=== PATIENT | male | born 1985 | race Caucasian/White ===

== ENCOUNTER 2019-01-15 21:09 | Emergency (ER) | payer SELFPAY ==
[2019-01-15 21:23] VITALS: BP 146/79
--- NOTE | 2019-01-15 21:55 | UC ---
Ear Complaint HPI - HPI Summary HPI Summary: started w/ L ear pain last night that then radiated to L ear pain. denies fever , n/v, gorman,new hearing problems. did have dental work done 2 wks. ago. - History of Current Complaint Chief Complaint: UCEar Stated Complaint: EAR ACHE Time Seen by Provider: 01/15/19 21:40 Hx Obtained From: Patient Pain Intensity: 5 Pain Scale Used: 0-10 Numeric - Allergies/Home Medications Allergies/Adverse Reactions: Allergies Allergy/AdvReac Type Severity Reaction Status Date / Time environmental Allergy Eyes Uncoded 01/15/19 21:23 Itchy/Swollen/Red/Watery PMH/Surg Hx/FS Hx/Imm Hx - Additional Past Medical History Additional PMH: chronic hearing problems. Previously Healthy: Yes Respiratory History: Asthma - Surgical History Surgical History: Yes Surgery Procedure, Year, and Place: Knee Surgery x2. Jaw Surgery - Family History Known Family History: Positive: None - Social History Alcohol Use: None Substance Use Type: None Smoking Status (MU): Light Every Day Tobacco Smoker Type: Cigars, Smokeless Tobacco Amount Used/How Often: 2 cigs daily Length of Time of Smoking/Using Tobacco: 23+ YEARS Have You Smoked in the Last Year: Yes When Did the Patient Quit Smoking/Using Tobacco: on the pacth right now - Immunization History Most Recent Tetanus Shot: within past 4 yrs Review of Systems All Other Systems Reviewed And Are Negative: Yes Constitutional: Positive: Negative. Negative: Fever Skin: Negative: Rash ENT: Positive: Ear Ache. Negative: Sore Throat, Sinus Pain/Tenderness Respiratory: Positive: Negative Cardiovascular: Positive: Negative Physical Exam Triage Information Reviewed: Yes Appearance: Well-Appearing Vital Signs: Initial Vital Signs Temp 97.7 F 01/15/19 21:18 Pulse 76 01/15/19 21:18 Resp 16 01/15/19 21:18 BP 146/79 01/15/19 21:18 Pulse Ox 98 01/15/19 21:18 Vital Signs Reviewed: Yes Eyes: Positive: Conjunctiva Clear ENT: Positive: Pharynx normal, TMs normal, Uvula midline, Other - ear pain experienced when otoscope was inserted into L canal. no lesions or vesicles noted in the area. no redness, no tragus tenderness or mastoid tenderness. Dental Exam: Normal Ear Complaint Course/Dx - Course Course Of Treatment: Unclear etiology as there were no findings on exam, afebrile and given recent dental visit advised to follow up with them. - Differential Dx/Diagnosis Differential Diagnosis/HQI/PQRI: Cellulitis, Foreign Body, Mastoiditis, Otitis Externa, Otitis Media Provider Diagnosis: Ear pain Discharge - Sign-Out/Discharge Documenting (check all that apply): Patient Departure All imaging exams completed and their final reports reviewed: No Studies - Discharge Plan Condition: Good Disposition: HOME Patient Education Materials: Earache (ED) Referrals: No Primary Care Phys,NOPCP [Primary Care Provider] - [facility] [Outside] Additional Instructions: please follow up with a primary care provider to get further evaluated. at this time i cannot find a source of your ear pain. - Billing Disposition and Condition Condition: GOOD Disposition: Home
== END 2019-01-15 21:59 | disposition home or self-care (01) ==
LOC: UCEAST 21:09
DX: H92.02 Otalgia, left ear (principal); J45.909 Unspecified asthma, uncomplicated; F17.210 Nicotine dependence, cigarettes, uncomplicated; Z86.69 Personal history of other diseases of the nervous system and sense organs; Z91.09 Other allergy status, other than to drugs and biological substances
CPT/HCPCS: 99211; G0463

== ENCOUNTER 2019-02-10 14:32 | Emergency (ER) | payer OTHER ==
[2019-02-10 14:50] VITALS: BP 148/87
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
== END 2019-02-10 16:10 | disposition home or self-care (01) ==
LOC: UCEAST 14:32
DX: S20.211A Contusion of right front wall of thorax, initial encounter (principal); S90.32XA Contusion of left foot, initial encounter; S90.31XA Contusion of right foot, initial encounter; S70.12XA Contusion of left thigh, initial encounter; S70.11XA Contusion of right thigh, initial encounter; F17.210 Nicotine dependence, cigarettes, uncomplicated; J45.909 Unspecified asthma, uncomplicated; Z91.09 Other allergy status, other than to drugs and biological substances; V49.40XA Driver injured in collision with unspecified motor vehicles in traffic accident, initial encounter; Y92.9 Unspecified place or not applicable
CPT/HCPCS: 99212; G0463

== ENCOUNTER → 2019-03-13 22:39 | Emergency (ER) | payer SELFPAY ==
[2019-03-13 22:50] VITALS: BP 130/74
[2019-03-13 23:18] LABS: ABS Basophils 0.1 10^3/ul (0-0.2); ABS Eosinophils 0.3 10^3/ul (0-0.6); ABS Lymphocytes 2.4 10^3/ul (1.0-4.8); ABS Monocytes 0.6 10^3/ul (0-0.8); ABS Neutrophils 3.6 10^3/ul (1.5-7.7); ABS Nucleated RBC 0 10^3/ul; Eosinophil % 4.3 %; Hematocrit 35 % (36-46); Hemoglobin 12.3 g/dL (14.0-18.0); Lymphocyte % 34.2 %; Mean Corpuscular HGB Conc 35 g/dL (31-36); Mean Corpuscular Hemoglobin 32 pg (27-31); Mean Corpuscular Volume 91 fL (80-94); Mean Platelet Volume 6.9 fL (7.4-10.4); Nucleated Red Blood Cells % 0; Platelet Count 245 10^3/uL (150-450); Red Blood Count 3.88 10^6 /uL (4.18-5.48); Red Cell Distribution Width 13 % (10.5-15)
[2019-03-13 23:25] LABS: Activated Partial Thrombo Time 25.5 seconds (26.0-36.3); INR 1.26 (0.82-1.09)
[2019-03-13 23:39] LABS: ALT 32 U/L (7-52); AST 26 U/L (13-39); Albumin 4.7 g/dL (3.2-5.2); Albumin/Globulin Ratio 1.8 (1-3); Alkaline Phosphatase 44 U/L (34-104); Anion Gap 4 mmol/L (2-11); Blood Urea Nitrogen 19 mg/dL (6-24); CO2 Carbon Dioxide 33 mmol/L (22-32); Calcium 9.6 mg/dL (8.6-10.3); Chloride 101 mmol/L (101-111); EGFR African American 72.2 (>60); EGFR Non-African American 59.6 (>60); Globulin 2.6 g/dL (2-4); Glucose 94 mg/dL (70-100); Potassium 3.9 mmol/L (3.5-5.0); Sodium 138 mmol/L (135-145); Total Protein 7.3 g/dL (6.4-8.9)
== END | disposition left against medical advice (07) ==
LOC: ED 22:39
DX: R10.9 Unspecified abdominal pain (principal); Z87.442 Personal history of urinary calculi; Z53.21 Procedure and treatment not carried out due to patient leaving prior to being seen by health care provider
CPT/HCPCS: 36415; 74176; 80053; 83690; 85025; 85610; 85730

== ENCOUNTER 2019-03-15 10:58 | Emergency (ER) | payer SELFPAY ==
[2019-03-15 11:26] VITALS: BP 110/63
--- NOTE | 2019-03-15 11:49 | UC ---
Skin Complaint HPI - HPI Summary HPI Summary: patient states he was scratched by his cat a few days ago on the left arm, complaining of increased redness and pain from the elbow to the hand. he does not have any visible cat scratches, some abrasions noted, suspicious scabs that resemble track gurrola of iv drug use, but this is denied by patient. there is an overwhelming smell of marijuana in the room - History of Current Complaint Chief Complaint: UCSkin Time Seen by Provider: 03/15/19 11:42 Stated Complaint: CAT SCRATCH Hx Obtained From: Patient Onset/Duration: Sudden Onset, Lasting Days Skin Exposure Onset/Duration: Days Ago Timing: Constant Onset Severity: Moderate Current Severity: Moderate Pain Intensity: 5 Character: Redness Aggravating Factor(s): Nothing Alleviating Factor(s): Nothing Related History: Possible Reaction to: Animal - Allergy/Home Medications Allergies/Adverse Reactions: Allergies Allergy/AdvReac Type Severity Reaction Status Date / Time environmental Allergy Eyes Uncoded 03/15/19 11:26 Itchy/Swollen/Red/Watery Home Medications: Home Medications Acetaminophen [Tylenol] 325 mg PO 03/15/19 [History] PMH/Surg Hx/FS Hx/Imm Hx Previously Healthy: Yes - Surgical History Surgical History: Yes Surgery Procedure, Year, and Place: Knee Surgery x2. Jaw Surgery - Family History Known Family History: Negative: Hypertension - Social History Alcohol Use: None Substance Use Type: None Substance Use Comment - Amount & Last Used: past history - clean for 2.5 years Smoking Status (MU): Light Every Day Tobacco Smoker Type: Cigars, Smokeless Tobacco Amount Used/How Often: 2 cigs daily Length of Time of Smoking/Using Tobacco: 23+ YEARS Have You Smoked in the Last Year: Yes When Did the Patient Quit Smoking/Using Tobacco: on the pacth right now - Immunization History Most Recent Tetanus Shot: within past 4 yrs Review of Systems All Other Systems Reviewed And Are Negative: Yes Skin: Positive: Other - mulitple sabs on arm, redness Is Patient Immunocompromised?: No Physical Exam Triage Information Reviewed: Yes Appearance: Ill-Appearing, Pain Distress, Thin Vital Signs: Initial Vital Signs Temp 98 F 03/15/19 11:20 Pulse 73 03/15/19 11:20 Resp 16 03/15/19 11:20 BP 110/63 03/15/19 11:20 Pulse Ox 99 03/15/19 11:20 Vital Signs Reviewed: Yes Eye Exam: Normal ENT Exam: Normal Dental: Positive: Gross Decay/Caries @ Neck exam: Normal Respiratory Exam: Normal Cardiovascular Exam: Normal Abdominal Exam: Normal Bowel Sounds: Positive: Present Musculoskeletal Exam: Normal Neurological Exam: Normal Psychological Exam: Normal Skin: Positive: Other - multiple scabs on various spots on left forarm. small abraision on the upper aspect of forearm very superficial some mild erythema of hand noted. Course/Dx - Course Course Of Treatment: hx obtained, exam performed, meds reviewed, treated for possible cat scratcch/ cellulitis of the left forearm - Differential Diagnoses - Skin Complaint Differential Diagnoses: Cellulitis - Diagnoses Provider Diagnosis: Cellulitis of left arm Discharge - Sign-Out/Discharge Documenting (check all that apply): Patient Departure All imaging exams completed and their final reports reviewed: No Studies - Discharge Plan Condition: Stable Disposition: HOME Prescriptions: Amoxicillin/Clavulanate TAB* [Augmentin TAB 875*] 875 mg PO BID #20 tab Patient Education Materials: Cat Scratch Disease (ED) Referrals: No Primary Care Phys,NOPCP [Primary Care Provider] - Additional Instructions: 1. take the medication as prescribed. 2. Ibuprofen for pain. 3. If not improving after 4 doses of medication please follow up. - Billing Disposition and Condition Condition: STABLE Disposition: Home - Attestation Statements Provider Attestation: I was available for consult. This patient was seen by the MALA. The patient was not presented to , seen by or examined by fl -Maximus Espinal MD
== END 2019-03-15 12:10 | disposition home or self-care (01) ==
LOC: UCEAST 10:58
DX: S50.812A Abrasion of left forearm, initial encounter (principal); S40.812A Abrasion of left upper arm, initial encounter; L03.114 Cellulitis of left upper limb; W55.03XA Scratched by cat, initial encounter; Y92.9 Unspecified place or not applicable; K02.9 Dental caries, unspecified; F17.200 Nicotine dependence, unspecified, uncomplicated
CPT/HCPCS: 99212; G0463

== ENCOUNTER 2019-03-17 02:00 | Emergency (ER) | payer SELFPAY ==
[2019-03-17 02:05] VITALS: BP 139/95
[2019-03-17] MEDS ORDERED: LORazepam TAB(*) 1 MG PO ONE (02:17)
[2019-03-17] MEDS ORDERED: Ibuprofen TAB* 400 MG PO ONE (02:18)
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
== END 2019-03-17 02:36 | disposition home or self-care (01) ==
LOC: ED 02:00
DX: S39.012A Strain of muscle, fascia and tendon of lower back, initial encounter (principal); V47.5XXA Car driver injured in collision with fixed or stationary object in traffic accident, initial encounter; Y92.9 Unspecified place or not applicable; M41.9 Scoliosis, unspecified; F17.210 Nicotine dependence, cigarettes, uncomplicated
CPT/HCPCS: 99282; A9270-GY

== ENCOUNTER 2019-08-10 13:39 | Emergency (ER) | payer MEDICAID ==
[2019-08-10 14:10] VITALS: BP 111/67
--- NOTE | 2019-08-10 15:39 | UC ---
Throat Pain/Nasal Kelvin HPI - HPI Summary HPI Summary: 33-year-old male presents with complaints of nasal congestion, runny nose, sore throat, wheezing, and productive cough for the past 1-1/2 weeks. Associated with occasional chills. Denies fever, ear pain, dysphagia, chest pain, shortness of breath, abdominal pain, nausea, or vomiting. - History of Current Complaint Chief Complaint: UCGeneralIllness Stated Complaint: SORE THROAT Time Seen by Provider: 08/10/19 14:54 Hx Obtained From: Patient Pain Intensity: 0 - Allergies/Home Medications Allergies/Adverse Reactions: Allergies Allergy/AdvReac Type Severity Reaction Status Date / Time environmental Allergy Eyes Uncoded 08/10/19 14:10 Itchy/Swollen/Red/Watery Home Medications: Home Medications Buprenorp/Nalox 8-2 MG FILM [Suboxone] 1 mis SL TID 08/10/19 [History Confirmed 08/10/19] Omeprazole 20 mg PO DAILY WITH MEAL 08/10/19 [History Confirmed 08/10/19] PMH/Surg Hx/FS Hx/Imm Hx Previously Healthy: Yes GI/ History: Gastroesophageal Reflux - Surgical History Surgical History: None Surgery Procedure, Year, and Place: Knee Surgery x2. Jaw Surgery - Family History Known Family History: Positive: Non-Contributory - Social History Occupation: Unemployed Lives: With Family Alcohol Use: None Alcohol Amount: clean one year Substance Use Comment - Amount & Last Used: past history - clean for 2.5 years Smoking Status (MU): Light Every Day Tobacco Smoker Type: Cigars, Smokeless Tobacco Amount Used/How Often: 2 cigs daily Length of Time of Smoking/Using Tobacco: 23+ YEARS Have You Smoked in the Last Year: Yes When Did the Patient Quit Smoking/Using Tobacco: on the pacth right now - Immunization History Most Recent Tetanus Shot: within past 4 yrs Review of Systems All Other Systems Reviewed And Are Negative: Yes Constitutional: Positive: Chills. Negative: Fever Skin: Negative: Rash Eyes: Negative: Drainage, Eye Redness ENT: Positive: Sore Throat, Nasal Discharge, Sinus Congestion. Negative: Ear Ache, Sinus Pain/Tenderness Respiratory: Positive: Cough, Other - Wheezing. Negative: Shortness Of Breath Cardiovascular: Negative: Palpitations, Chest Pain Gastrointestinal: Negative: Abdominal Pain, Vomiting, Diarrhea, Nausea Genitourinary: Positive: Negative Musculoskeletal: Positive: Negative Neurological: Positive: Negative Is Patient Immunocompromised?: No Physical Exam - Summary Physical Exam Summary: GENERAL APPEARANCE: Well developed, well nourished, alert and cooperative, and appears to be in no acute distress. EYES: Conjunctiva clear. No drainage. EARS: External auditory canals and tympanic membranes clear, minimal scarring noted on right TM, hearing grossly intact. NOSE: Mild nasal congestion without nasal discharge. No sinus tenderness. THROAT: Mild pharyngeal erythema with post-nasal drainage. No tonsilar inflammation, swelling, exudate, or lesions. Uvula midline. NECK: Neck supple, non-tender. Mild anterior cervical lymphadenopathy. CARDIAC: Normal S1 and S2. No S3, S4 or murmurs. Rhythm is regular. There is no peripheral edema, cyanosis or pallor. Extremities are warm and well perfused. Capillary refill is less than 2 seconds. Peripheral pulses intact. LUNGS: Clear to auscultation without rales, rhonchi, wheezing or diminished breath sounds. Loose, nonproductive cough. ABDOMEN: Positive bowel sounds. Soft, nondistended, nontender. No guarding or rebound. No masses or hepatosplenomegally. MUSKULOSKELETAL: ROM intact to all extremities. No joint erythema or tenderness. Normal muscular development. Normal gait. SKIN: Skin normal color, texture and turgor with no lesions or eruptions. Triage Information Reviewed: Yes Vital Signs: Initial Vital Signs Temp 99.8 F 08/10/19 14:07 Pulse 62 08/10/19 14:07 Resp 18 08/10/19 14:07 BP 111/67 08/10/19 14:07 Pulse Ox 98 08/10/19 14:07 Vital Signs Reviewed: Yes Throat Pain/Nasal Course/Dx - Course Course Of Treatment: 33-year-old male presents with complaints of nasal congestion, runny nose, sore throat, wheezing, and productive cough for the past 1-1/2 weeks. Associated with occasional chills. Denies fever, ear pain, dysphagia, chest pain, shortness of breath, abdominal pain, nausea, or vomiting. Afebrile. Vital signs stable. Patient mild nasal congestion, mild pharyngeal erythema with postnasal drip, no tonsillar swelling or exudate, mild anterior cervical lymphadenopathy, clear bilateral breath sounds, or loose nonproductive cough, and otherwise unremarkable exam. Discussed with patient that symptoms are likely viral however considering the duration of symptoms cannot exclude the possibility of a secondary bacterial infection therefore patient would prefer to treat with course of antibiotics. Patient is to start azithromycin 2 tabs today followed by 1 tab daily for the next 4 days for an upper respiratory infection. We will also provide him with an albuterol inhaler as needed for any shortness of breath or wheezing, Tessalon Perles 1 capsule every 8 hours as needed for cough, and fluticasone nasal spray for his nasal congestion. He is to return here or follow up with primary care in 5 days if symptoms are not improving. Anticipatory guidance and warning symptoms were reviewed with the patient. Verbalizes understanding and agrees with plan of care. - Differential Dx/Diagnosis Differential Diagnosis/HQI/PQRI: Pharyngitis, Sinusitis, Tonsillitis, URI Provider Diagnosis: Upper respiratory infection Discharge ED - Sign-Out/Discharge Documenting (check all that apply): Patient Departure All imaging exams completed and their final reports reviewed: No Studies - Discharge Plan Condition: Stable Disposition: HOME Prescriptions: Albuterol HFA INHALER* [Ventolin HFA Inhaler*] 2 puff INH Q4H PRN #1 mdi PRN Reason: Sob/Wheezing Azithromyxin ANI (NF) [Z-Ani (Zithromax) 250 mg tabs #6] 2 tab PO .TODAY, THEN 1 DAILY #6 tab Benzonatate CAP* [Tessalon 100 MG CAP*] 100 mg PO TID PRN #21 cap PRN Reason: Cough Patient Education Materials: Upper Respiratory Infection (ED) Referrals: No Primary Care Phys,NOPCP [Primary Care Provider] - Additional Instructions: Your history and exam are consistent with an upper respiratory infection with cough. Start azithromycin 2 tabs today than 1 tab a day for the next 4 days. Use fluticasone (Flonase) nasal spray 2 sprays each nostril once daily to help with the nasal congestion. Use albuterol inhaler 2 puffs every 4-6 hours as needed for shortness of breath or wheezing. Take Tessalon Perles 1 capsule every 8 hours as needed for cough. Take over the counter acetaminophen (Tylenol) or ibuprofen (Advil, Motrin) according to directions as needed for pain or fever. Use salt water gargles several times a day if you have a sore throat. You may also use Chloraseptic spray or Cepacol lonzenges according to directions which contain a numbing medication and can provide some temporary relief from your sore throat. Return here or follow up with your primary care provider in 5 days if symptoms persist. Seek immediate medical attention in the emergency room if you have fever greater than 100.5 F despite taking acetaminophen or ibuprofen, have chest pain , difficulty breathing, are unable to swallow, or have any worsening of symptoms. - Billing Disposition and Condition Condition: STABLE Disposition: Home
== END 2019-08-10 15:55 | disposition home or self-care (01) ==
LOC: UCEAST 13:39
DX: J06.9 Acute upper respiratory infection, unspecified (principal); K21.9 Gastro-esophageal reflux disease without esophagitis
CPT/HCPCS: 87651; 99212; G0463

== ENCOUNTER 2019-10-25 08:55 | Emergency (ER) | payer MEDICAID, OTHER ==
--- NOTE | 2019-10-25 09:11 | UC ---
Cardiac HPI - HPI Summary HPI Summary: 33 yo smoker arrives with 2 hours of left chest pain, described as sharp, acute onset while driving. No associated diaphoresis or nausea. No previous hx of cardiac disease. He used crack cocaine last night and intravenously injected his last dose of Subutex this morning. States that he had a concussion 2 days ago when he smacked his head in his barn , no loss f consciousness. - History of Current Complaint Stated Complaint: CHEST PAIN Time Seen by Provider: 10/25/19 09:00 Hx Obtained From: Patient Onset/Duration: Sudden Onset, Lasting Hours - 2 Initial Severity: Moderate Current Severity: Severe Pain Intensity: 9 Chest Pain Location: Left Lateral Character: Sharp/Stabbing Aggravating Factor(s): Position, Deep Breaths Alleviating Factor(s): Position, Nothing Associated Signs & Symptoms: Positive: Chest Pain - Risk Factors Pulmonary Embolism Risk Factors: Smoking Cardiac Risk Factors: Smoking Atrial Fibrillation: Negative TAD Risk Factors: Negative AMI/ACS Risk Factors: Smoking, Cocaine - Allergy/Home Medications Allergies/Adverse Reactions: Allergies Allergy/AdvReac Type Severity Reaction Status Date / Time environmental Allergy Eyes Uncoded 08/10/19 14:10 Itchy/Swollen/Red/Watery PMH/Surg Hx/FS Hx/Imm Hx - Additional Past Medical History Additional PMH: hx of cocain abuse Previously Healthy: No - Surgical History Surgical History: None Surgery Procedure, Year, and Place: Knee Surgery x2. Jaw Surgery - Family History Known Family History: Negative: Cardiac Disease - states no FH of cardiac disease. - Social History Occupation: Unemployed Lives: With Family Alcohol Use: None Alcohol Amount: clean one year Substance Use Type: Cocaine Substance Use Comment - Amount & Last Used: past history - clean for 2.5 years Smoking Status (MU): Light Every Day Tobacco Smoker Type: Cigars, Smokeless Tobacco Amount Used/How Often: 2 cigs daily Length of Time of Smoking/Using Tobacco: 23+ YEARS Have You Smoked in the Last Year: Yes When Did the Patient Quit Smoking/Using Tobacco: on the pacth right now - Immunization History Most Recent Tetanus Shot: within past 4 yrs Review of Systems All Other Systems Reviewed And Are Negative: Yes Constitutional: Positive: Fatigue Skin: Positive: Other - track gurrola forearms. Eyes: Positive: Negative ENT: Positive: Negative Respiratory: Positive: Shortness Of Breath Cardiovascular: Positive: Chest Pain Gastrointestinal: Negative: Abdominal Pain, Vomiting, Nausea Genitourinary: Positive: Negative Motor: Positive: Negative Neurovascular: Positive: Negative Musculoskeletal: Positive: Negative Neurological: Positive: Negative Psychological: Positive: Negative Physical Exam Triage Information Reviewed: Yes Appearance: Ill-Appearing, Pain Distress - moderate, Thin Vital Signs Reviewed: Yes ENT: Positive: Pharynx normal Neck: Positive: Supple, Nontender, No Lymphadenopathy Respiratory: Positive: Lungs clear, Normal breath sounds Cardiovascular: Positive: RRR, No Murmur, Pulses Normal Abdomen Description: Positive: Nontender, No Organomegaly, Soft Musculoskeletal Exam: Normal Neurological: Positive: Alert, Muscle Tone Normal Psychological Exam: Other - anxious Skin Exam: Other - Track gurrola both forearms. Skin: Negative: Rashes Diagnostics - EKG Cardiac Rate: NL Cardiac Rhythm: Sinus: Normal Ectopy: None ST Segment: Non-Specific Re-Evaluation - Re-Evaluation First Eval Re-Evaluation Time: 09:25 Change: Unchanged Comment: No response to one dose of nitroglycerine. Blood pressure lower at 119. - Assessment/Plan Course Of Treatment: Transferred to ER for evaluation - Differential Diagnoses - Chest Pain Differential Diagnosis/HQI/PQRI: Acute MN, ACS, Chest Wall, Pulmonary Embolism - Clinical Impression Provider Diagnosis: Chest pain - Physician Notifications Discussed Patient Care With: Jose Corona Time Discussed With Above Provider: 09:20 Instructed by Provider To: MD Will See In ED Discharge ED - Sign-Out/Discharge Documenting (check all that apply): Patient Departure All imaging exams completed and their final reports reviewed: No Studies - Discharge Plan Condition: Stable Disposition: TRANS HIGHER LVL OF CARE FAC Referrals: No Primary Care Phys,NOPCP [Primary Care Provider] - - Billing Disposition and Condition Condition: STABLE Disposition: Trans Higher Lvl of Care Fac
[2019-10-25] MEDS ORDERED: Aspirin 81 mg CHEW TAB* 81 MG TAB.CHEW PO ONE (09:12)
[2019-10-25] MEDS ORDERED: Nitroglycerin TAB 0.4 MG* 0.4 MG TAB SL ONE (09:13)
[2019-10-25 09:42] VITALS: BP 119/63
== END 2019-10-25 09:35 | disposition short-term general hospital (02) ==
LOC: UCEAST 08:55
DX: R07.89 Other chest pain (principal); R53.83 Other fatigue; F17.290 Nicotine dependence, other tobacco product, uncomplicated; Z91.09 Other allergy status, other than to drugs and biological substances
CPT/HCPCS: 93005; 99213; A9270-GY; G0463

== ENCOUNTER 2019-10-25 09:58 | Emergency (ER) | payer OTHER ==
[2019-10-25] MEDS ORDERED: LORazepam INJ* 2 MG/ML 1 ML VIAL IV PUSH ONE ×2 (09:59→10:15)
[2019-10-25] MEDS ORDERED: Lorazepam PYXIS KEY PRN ×2 (09:59→10:15)
[2019-10-25] MEDS ORDERED: NS 0.9% 1000 ML** 1,000 ML IV ONE (10:00)
[2019-10-25] MEDS ORDERED: Lorazepam PYXIS KEY ONE ×2 (10:01→10:18)
--- NOTE | 2019-10-25 10:07 | ED ---
HPI Chest Pain - HPI Summary HPI Summary: The patient is a 33 y/o M arriving by ambulance to [facility] from [facility] with a chief complaint of sudden onset left anterior CP onset this morning at 0700. The pain is described as a sharp, stabbing, feeling like my chest is about to explode pain rated 10/10 in severity that has not been relieved or changed with ASA or 1 NTG at [facility], or with 2 additional NTG en route. The pain radiates into the left lateral area. Patient denies any diaphoresis, nausea, or SOB. EKG at [facility] showed ST changes c/w early repol without indication for acute ID, per EMS report. He states that he smoked crack cocaine last night, but he didnt have any CP then. He injected Suboxone this morning which he is prescribed for previous heroin abuse with last use 8 months ago. No past medical or family history of cardiac disease. He also notes that he fell a few days ago where he hit his head, but he denies any LOC with the event. Current smoker, no EtOH. Medications reviewed. Allergies noted. Blood pressure in ambulance: 125/75 mmHg Blood pressure upon arrival: 112/56 mmHg (left), 125/80 mmHg (right) Repeat blood pressures: 103/53 mmHg (left), 120/72 mmHg (right) - History of Current Complaint Hx Obtained From: Patient, EMS Onset/Duration: Started Hours Ago, Still Present Time of Onset: 07:00 Timing: Constant, Lasting Hours Initial Severity: Severe Current Severity: Severe Pain Intensity: 10 Pain Scale Used: 0-10 Numeric Chest Pain Location: Left Anterior Chest Pain Radiates: Yes Chest Pain Radiates To:: Other - left lateral chest Character: Sharp/Stabbing Aggravating Factor(s): Nothing Alleviating Factor(s): Nothing - ASA and NTG to no relief Associated Signs and Symptoms: Positive: Chest Pain. Negative: Shortness of Breath, Diaphoresis, Nausea - Allergy/Home Medications Allergies/Adverse Reactions: Allergies Allergy/AdvReac Type Severity Reaction Status Date / Time environmental Allergy Eyes Uncoded 08/10/19 14:10 Itchy/Swollen/Red/Watery PMH/Surg Hx/FS Hx/Imm Hx Endocrine/Hematology History: Denies: Hx Diabetes, Hx Thyroid Disease Cardiovascular History: Denies: Hx Hypertension Respiratory History: Denies: Hx Asthma, Hx Chronic Obstructive Pulmonary Disease (COPD) GI History: Reports: Hx Ulcer - Surgical History Surgical History: Yes Surgery Procedure, Year, and Place: Knee Surgery x2. Jaw Surgery - Immunization History Date of Tetanus Vaccine: 2-3 yrs ago Date of Influenza Vaccine: none Infectious Disease History: Denies: Hx Clostridium Difficile, Hx Hepatitis, Hx Human Immunodeficiency Virus (HIV), Hx of Known/Suspected MRSA, Hx Shingles, Hx Tuberculosis, Hx Known/ Suspected VRE, Hx Known/Suspected VRSA, History Other Infectious Disease - Family History Known Family History: Negative: Cardiac Disease - states no FH of cardiac disease. - Social History Alcohol Use: None Alcohol Amount: clean one year Substance Use Type: Reports: Cocaine, Heroin Substance Use Comment - Amount & Last Used: last used crack cocaine on 10/24/19 Smoking Status (MU): Light Every Day Tobacco Smoker Type: Cigars, Smokeless Tobacco Amount Used/How Often: 2 cigs daily Length of Time of Smoking/Using Tobacco: 23+ YEARS Have You Smoked in the Last Year: Yes Review of Systems Negative: Skin Diaphoresis Positive: Chest Pain - left anterior radiating into left lateral, sharp and stabbing Negative: Shortness Of Breath Negative: Nausea All Other Systems Reviewed And Are Negative: Yes Physical Exam - Summary Physical Exam Summary: Constitutional: Well-developed. (+) Moderately distressed Skin: Warm, Dry HENT: Normocephalic; Atraumatic Eyes: Conjunctiva normal Neck: Musculoskeletal ROM normal neck. (-) JVD, (-) Stridor, (-) Nuchal rigidity Cardio: Rhythm regular, rate normal, Heart sounds normal; Intact distal pulses; Radial pulses are 2+ and symmetric. (-) Murmur Pulmonary/Chest wall: Effort normal. Tenderness over the left anterior chest. (- ) Respiratory distress, (-) Wheezes, (-) Rales Abd: Soft, (-) tenderness, (-) Distension, (-) Guarding, (-) Rebound Musculoskeletal: (-) Edema, tenderness to L chest wall. Lymph: (-) Cervical adenopathy Neuro: Alert, Oriented x3 Psych: Anxious, Mood and affect otherwise Normal Triage Information Reviewed: Yes Vital Signs Reviewed: Yes Procedures - Sedation Patient Received Moderate/Deep Sedation with Procedure: No Diagnostics - Laboratory Result Diagrams: 10/25/19 10:31 10/25/19 10:31 Lab Statement: Any lab studies that have been ordered have been reviewed, and results considered in the medical decision making process. - Radiology CXR Radiology Interpretation Completed By: Radiologist Summary of Radiographic Findings: Impression: No focal airspace opacification. ED physician has reviewed this report. - CT Chest/Abdomen/Pelvis CTA CT Interpretation Completed By: Radiologist Summary of CT Findings: Impression: Unremarkable CTA of the chest, abdomen and pelvis. Specifically, no aortic dissection is identified. ED physician has reviewed this report. - EKG 0959 Cardiac Rate: NL - 87 BPM EKG Rhythm: Sinus Rhythm Summary of EKG Findings: An EKG at 0959 reveals normal sinus rhythm at 87 BPM. Mild peaked T waves in lead II, V2, and V3. No STEMI. ED physician has reviewed and interpreted this EKG. 1005 Cardiac Rate: NL - 78 BPM EKG Rhythm: Sinus Rhythm EKG Comparison: No Significant Change - Similar to previous at 0959 today. Summary of EKG Findings: An EKG at 1005 reveals normal sinus rhythm at 87 BPM. Continued peaked T waves in lead II, V2, V3, and V4. No STEMI. ED physician has reviewed and interpreted this EKG. 1337 Cardiac Rate: Bradycardia - 55 BPM EKG Rhythm: Sinus Bradycardia Summary of EKG Findings: An EKG at 1337 reveals sinus bradycardia at 55 BPM, nml axis, nml intervals. No STEMI. No acute changes. ED physician has reviewed and interpreted this EKG. Re-Evaluation - Re-Evaluation First Eval Re-Evaluation Time: 14:09 Change: Improved Comment: He is still experiencing pain in the chest wall but is improved since onset. Second Eval Re-Evaluation Time: 14:34 Change: Improved Comment: Patient is eating. Has ambulated in ED. trop neg x2 Chest Pain Course/Dx - Course Course Of Treatment: 33 y/o male w hx cocaine and heroin use p/w CP. - PE w uncomfortable male, equal pulses. Mild discrepency in BP between arms. EKG here w mild peaked t waves otherwise normal. CXR w/o abnormality. CT dissection w/o e /o dissection. Trop neg x2, EKG unchanged x3. VSS. Given aspirin and nitro which did not help. Likely pain 2/2 cocaine use, given ativan 2 mg w good relief. Patient tolerating PO and ambulating in ED. States only pain when movingg L chest wall otherwise feels much improved. Heart score 2, low risk. - Diagnoses Provider Diagnoses: Chest pain, Cocaine use Discharge ED - Sign-Out/Discharge Documenting (check all that apply): Patient Departure - Patient will be discharged home. - Discharge Plan Condition: Stable Disposition: HOME Patient Education Materials: Chest Pain (ED), Cocaine Abuse (ED) Referrals: [facility] [Outside] - 3 Days Additional Instructions: You were seen in the emergency department for chest pain. Please do not use cocaine. Your EKG (heart tracing), labs and chest x-ray did not show any cause for pain. Important that you follow up with you primary care doctor in the next 1-2 days to help schedule an outpatient stress test. Please return to the emergency department for continued chest pain, trouble breathing, passing out, or if you're concerned. - Billing Disposition and Condition Condition: STABLE Disposition: Home - Attestation Statements Document Initiated by José Luis: Yes Documenting Scribe: Diane Escalante Provider For Whom José Luis is Documenting (Include Credential): Dr. Sally Seaman MD Scribe Attestation: I, Diane Escalante, scribed for Dr. Sally Seaman MD on 10/26/19 at 1616. Scribe Documentation Reviewed: Yes Provider Attestation: The documentation as recorded by the Diane storey accurately reflects the service I personally performed and the decisions made by me, Dr. Sally Seaman MD Status of Scribe Document: Viewed
[2019-10-25 10:40] LABS: ABS Basophils 0.1 10^3/ul (0-0.2); ABS Eosinophils 0.5 10^3/ul (0-0.6); ABS Lymphocytes 1.8 10^3/ul (1.0-4.8); ABS Monocytes 0.4 10^3/ul (0-0.8); ABS Neutrophils 2.1 10^3/ul (1.5-7.7); Eosinophil % 9.7 %; Hematocrit 32 % (42-52); Hemoglobin 11.3 g/dL (14.0-18.0); Mean Corpuscular HGB Conc 36 g/dL (31-36); Mean Corpuscular Hemoglobin 32 pg (27-31); Mean Corpuscular Volume 89 fL (80-94); Mean Platelet Volume 6.6 fL (7.4-10.4); Nucleated Red Blood Cells % 0.1; Platelet Count 184 10^3/uL (150-450); Red Blood Count 3.59 10^6 /uL (4.18-5.48); Red Cell Distribution Width 14 % (10-15); White Blood Count 4.9 10^3/uL (3.5-10.8)
[2019-10-25 10:54] LABS: Albumin 3.9 g/dL (3.2-5.2); Albumin/Globulin Ratio 1.6 (1-3); BUN/Creatinine Ratio 19.4 (8-20); Calcium 8.9 mg/dL (8.6-10.3); EGFR African American 99.4 (>60); EGFR Non-African American 82.2 (>60); Globulin 2.5 g/dL (2-4); Potassium 4.4 mmol/L (3.5-5.0); Total Bilirubin 0.4 mg/dL (0.2-1.0); Total Protein 6.4 g/dL (6.4-8.9)
[2019-10-25] MEDS ORDERED: Iohexol 350* (CONTRAST) 500 ML MDV IV ONE (11:02)
[2019-10-25 15:31] VITALS: BP 117/72
== END 2019-10-25 15:31 | disposition home or self-care (01) ==
LOC: ED 09:58
DX: R07.89 Other chest pain (principal); F14.90 Cocaine use, unspecified, uncomplicated; R00.1 Bradycardia, unspecified; F17.290 Nicotine dependence, other tobacco product, uncomplicated
CPT/HCPCS: 36415; 71045; 71275; 74174; 80053; 84484; 85025; 93005; 96361; 96374; 99284; J2060; Q9967

== ENCOUNTER 2019-10-30 09:07 | Emergency (ER) | payer OTHER ==
[2019-10-30 09:29] VITALS: BP 115/78
--- NOTE | 2019-10-30 10:04 | UC ---
Laceration HPI - HPI Summary HPI Summary: 33 yo who lacerated mid left eyebrow when he walked into the open door of his vehicle today after he turned quickly. No loss of consciousness or changes in vision associated with this. Tetanus is up to date. - History Of Current Complaint Chief Complaint: UCLaceration Stated Complaint: LAC OVER LT EYE Time Seen by Provider: 10/30/19 09:56 Hx Obtained From: Patient Laceration Location: Eye - eyebrow Mechanism Of Injury: Blunt Trauma Severity: Mild Pain Intensity: 3 Aggravating Factors: Nothing - Allergies/Home Medications Allergies/Adverse Reactions: Allergies Allergy/AdvReac Type Severity Reaction Status Date / Time environmental Allergy Eyes Uncoded 10/30/19 09:18 Itchy/Swollen/Red/Watery PMH/Surg Hx/FS Hx/Imm Hx - Additional Past Medical History Additional PMH: hx of cocaine and drug abuse. - Surgical History Surgical History: Yes Surgery Procedure, Year, and Place: Knee Surgery x2. Jaw Surgery - Family History Known Family History: Positive: Non-Contributory Negative: Cardiac Disease - states no FH of cardiac disease. - Social History Occupation: Unemployed Lives: With Family Alcohol Use: None Alcohol Amount: clean one year Substance Use Type: Cocaine Substance Use Comment - Amount & Last Used: last used crack cocaine on 10/24/19 Smoking Status (MU): Light Every Day Tobacco Smoker Type: Cigars, Smokeless Tobacco Amount Used/How Often: 2 cigs daily Length of Time of Smoking/Using Tobacco: 23+ YEARS Have You Smoked in the Last Year: Yes When Did the Patient Quit Smoking/Using Tobacco: on the pacth right now Household Exposure Type: Cigars - Immunization History Most Recent Tetanus Shot: 2016 Review of Systems All Other Systems Reviewed And Are Negative: Yes Constitutional: Positive: Negative Skin: Positive: Negative Eyes: Negative: Blurred Vision, Eye Redness ENT: Positive: Negative Respiratory: Positive: Negative Cardiovascular: Positive: Chest Pain - note recent evaluation of chest pain with CTA of the chest being negative, normal chest xray. He has been injecting suboxone., Other - episodes of pre-syncopy with position changes. Gastrointestinal: Positive: Negative Genitourinary: Positive: Negative Motor: Positive: Negative Neurovascular: Positive: Negative Musculoskeletal: Positive: Negative Neurological: Positive: Negative Psychological: Positive: Negative Is Patient Immunocompromised?: No Physical Exam Triage Information Reviewed: Yes Appearance: Thin - looks chronically unwell Vital Signs: Initial Vital Signs Temp 98.8 F 10/30/19 09:18 Pulse 71 10/30/19 09:18 Resp 18 10/30/19 09:18 BP 115/78 10/30/19 09:18 Pulse Ox 100 10/30/19 09:18 Eye Exam: Normal ENT: Positive: Pharynx normal, TMs normal Neck exam: Normal Respiratory Exam: Normal Cardiovascular Exam: Normal Musculoskeletal Exam: Normal Neurological Exam: Normal Psychological Exam: Normal Skin Exam: Normal Laceration Repair - Laceration Repair 1 Description: Linear Laceration Size After Repair: Length (cm) - 1.2, Width (mm) - 0 Modified For Repair: No Irrigation With Pressure Irrigation Device: Yes Closure Material: Skin Adhesive - Repaired with adhesive with good approximation of margins Laceration Course/Dx - Course/Dx Course Of Treatment: care of wound discussed. - Differential Dx - Laceration/Wound Differental Diagnoses: Laceration - Diagnosis Provider Diagnosis: Laceration of left eyebrow without complication Discharge ED - Sign-Out/Discharge Documenting (check all that apply): Patient Departure All imaging exams completed and their final reports reviewed: No Studies - Discharge Plan Condition: Stable Disposition: HOME Patient Education Materials: Skin Adhesive Care (ED), Facial Laceration (ED) Referrals: No Primary Care Phys,NOPCP [Primary Care Provider] - Additional Instructions: The laceration of your eyebrow should heal well with adhesive (See care instructions). Please ensure that you keep your follow up evaluation with [facility] to review medications and your recent symptoms. - Billing Disposition and Condition Condition: STABLE Disposition: Home
== END 2019-10-30 10:34 | disposition home or self-care (01) ==
LOC: UCCORT 09:07
DX: S01.112A Laceration without foreign body of left eyelid and periocular area, initial encounter (principal); F17.290 Nicotine dependence, other tobacco product, uncomplicated; Z91.09 Other allergy status, other than to drugs and biological substances; W22.8XXA Striking against or struck by other objects, initial encounter; Y92.9 Unspecified place or not applicable
CPT/HCPCS: 12001; 99211; G0463

== ENCOUNTER 2020-01-18 10:37 | Emergency (ER) | payer OTHER ==
[2020-01-18] MEDS ORDERED: Meclizine TAB* 12.5 MG PO ONE (10:59)
[2020-01-18] MEDS ORDERED: Aspirin 81 mg CHEW TAB* 81 MG TAB.CHEW PO ONE (10:59)
[2020-01-18 11:00] VITALS: BP 138/89
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
== END 2020-01-18 11:35 | disposition home health service (06) ==
LOC: UCEAST 10:37
DX: R42 Dizziness and giddiness (principal); R51 Headache; I21.9 Acute myocardial infarction, unspecified; R94.31 Abnormal electrocardiogram [ECG] [EKG]; S09.90XA Unspecified injury of head, initial encounter; F19.11 Other psychoactive substance abuse, in remission; F17.290 Nicotine dependence, other tobacco product, uncomplicated; Z91.09 Other allergy status, other than to drugs and biological substances; W22.8XXA Striking against or struck by other objects, initial encounter; Y92.9 Unspecified place or not applicable
CPT/HCPCS: 99212; A9270-GY; G0463

== ENCOUNTER 2020-01-25 09:58 | Emergency (ER) | payer OTHER ==
[2020-01-25 12:48] VITALS: BP 121/73
--- NOTE | 2020-01-25 13:42 | UC ---
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 Has B/L excoriated skin skins on B/L forearms but c/o severe right testicular tenderness, denies recent sexual activity, last STD testing was in November and was Neg per pt. Pt states he masturbates 2-3times per day and may have "irritated it" denies drainage from penis or dysuria - History of Current Complaint Chief Complaint: UCSkin Stated Complaint: PERSONAL Time Seen by Provider: 01/25/20 10:48 Hx Obtained From: Patient Onset/Duration: Sudden Onset Timing: Constant Severity Initially: Severe Severity Currently: Severe Pain Intensity: 8 Pain Scale Used: 0-10 Numeric Location: Other - around [place] of penis Character: Sharp Alleviating Factor(s): Movement Associated Signs And Symptoms: Positive: Negative - Risk Factors Testicular Torsion: Negative - Allergies/Home Medications Allergies/Adverse Reactions: Allergies Allergy/AdvReac Type Severity Reaction Status Date / Time environmental Allergy Eyes Uncoded 01/25/20 10:09 Itchy/Swollen/Red/Watery Home Medications: Home Medications Meclizine HCl [Motion Sickness Relief] 25 mg PO Q6HR PRN #20 tablet 01/18/20 [ Rx Confirmed 01/25/20] Omeprazole 20 mg PO DAILY 01/18/20 [History Confirmed 01/25/20] Cephalexin CAP* [Keflex CAP*] 500 mg PO TID 10 Days #30 cap 01/25/20 [Rx] Naproxen [Naproxen 500 mg tab] 500 mg PO BID 10 Days #20 tablet 01/25/20 [Rx] Suboxone 12 mg-3 mg Sl Film 1 film PO BID 01/25/20 [History Confirmed 01/25/20] Sulfamethox/Trimethoprim DS* [Bactrim DS 800/160 TAB*] 1 tab PO DAILY 10 Days # 20 tab 01/25/20 [Rx] PMH/Surg Hx/FS Hx/Imm Hx Previously Healthy: No - Surgical History Surgical History: Yes Surgery Procedure, Year, and Place: Knee Surgery x2. Jaw Surgery - Family History Known Family History: Positive: Non-Contributory Negative: Cardiac Disease - states no FH of cardiac disease. - Social History Occupation: Unemployed Lives: Alone Alcohol Use: None Alcohol Amount: clean one year Substance Use Type: Synthetic Drugs Substance Use Comment - Amount & Last Used: meth amp Smoking Status (MU): Light Every Day Tobacco Smoker Type: Cigars Amount Used/How Often: 2 cigs daily Length of Time of Smoking/Using Tobacco: 23+ YEARS Have You Smoked in the Last Year: Yes When Did the Patient Quit Smoking/Using Tobacco: on the pacth right now Household Exposure Type: Cigars - Immunization History Most Recent Tetanus Shot: 2016 Review of Systems All Other Systems Reviewed And Are Negative: Yes Constitutional: Positive: Negative Skin: Positive: Negative, Other - scrotal and penile skin lesions/infection Eyes: Positive: Negative ENT: Positive: Negative Respiratory: Positive: Negative Gastrointestinal: Positive: Negative, Abdominal Pain. Negative: Vomiting, Diarrhea Genitourinary: Positive: Negative. Negative: Dysuria Physical Exam - Summary Physical Exam Summary: Vital Signs Reviewed: Yes Eye Exam: Normal Eyes: Positive: Conjunctiva Clear ENT: Positive: Normal ENT inspection Neck: Positive: Supple Respiratory: Positive: Lungs clear, Normal breath sounds. Negative: Crackles, Rhonchi, Stridor, Wheezing Cardiovascular Exam: Normal, RRR, S1, S2 Abdomen: NT/ND ; erythematous and moderately tender right skin lesion/infection on right scrotum and [place] of penis, no obvious d/c, +B/L inguinal gland s L>R Musculoskeletal Exam: Normal Neurological Exam: Normal Psychological Exam: Normal Skin Exam: Normal Triage Information Reviewed: Yes Vital Signs: Initial Vital Signs Temp 36.9 C 01/25/20 10:06 Pulse 89 01/25/20 10:06 Resp 18 01/25/20 10:06 BP 110/78 01/25/20 10:06 Pulse Ox 100 01/25/20 10:06 Complaint Male Course/Dx - Differential Dx/Diagnosis Provider Diagnosis: Hydrocele in adult, Cellulitis of scrotum Discharge ED - Sign-Out/Discharge Documenting (check all that apply): Patient Departure All imaging exams completed and their final reports reviewed: Yes - Discharge Plan Condition: Stable Disposition: HOME Prescriptions: Cephalexin CAP* [Keflex CAP*] 500 mg PO TID 10 Days #30 cap Naproxen [Naproxen 500 mg tab] 500 mg PO BID 10 Days #20 tablet Sulfamethox/Trimethoprim DS* [Bactrim DS 800/160 TAB*] 1 tab PO DAILY 10 Days # 20 tab Patient Education Materials: Hydrocele (ED), Cellulitis (ED), Acute Wound Care (ED) Referrals: No Primary Care Phys,NOPCP [Primary Care Provider] - - Billing Disposition and Condition Condition: STABLE Disposition: Home
== END 2020-01-25 13:16 | disposition home or self-care (01) ==
LOC: UCEAST 09:58
DX: N43.3 Hydrocele, unspecified (principal); N49.2 Inflammatory disorders of scrotum; F17.290 Nicotine dependence, other tobacco product, uncomplicated; Z91.09 Other allergy status, other than to drugs and biological substances
CPT/HCPCS: 76870; 99212; G0463